=== PATIENT | female | born 1960 | race Caucasian/White ===

== ENCOUNTER → 2017-07-17 09:26 | Outpatient (CLI) | payer OTHER, SELFPAY ==
--- NOTE | 2017-07-17 09:45 | XR_ITS ---
XR DEXA axial skeleton HISTORY: ITS.REASON: OSTEOPENIA ORDERING PHYSICIAN: Carlos Alexander MD PATIENT AGE: 57 years COMPARISON: FINDINGS: The BMD measured at the left femoral neck is 1.084 g/cm squared with a T score of 0.3. This is considered normal according to the World Health Organization criteria. Fracture risk is low. L1 L4 density has a T score of 0.7 which is normal. IMPRESSION: Normal bone density. Recommend follow-up exam July 2019
== END ==
PROVIDERS: Family Provider Internal Medicine Adolescent Medicine; PCP Family Medicine; Visit Provider Family Medicine
DX: M85.89 Other specified disorders of bone density and structure, multiple sites (principal)
CPT/HCPCS: 77080

== ENCOUNTER → 2020-11-21 16:31 | Outpatient (CLI) | payer BC, SELFPAY ==
[2020-11-21 16:34] LABS: Microscopic, Urine URINE MICROSCOPIC (MICROSCOPIC)
[2020-11-21 17:34] LABS: Appearance,Urine SL CLOUDY (Clear); Bilirubin,Urine Negative (Negative); Blood, Urine 3+ (Negative); Color,Urine YELLOW (Yellow); Glucose,Urine (UA) Negative (Negative); Ketones,Urine Negative (Negative); Leukocyte Esterase,Urine Negative (Negative); Nitrate,Urine Negative (Negative); Protein,Urine TRACE (Negative); Specific Gravity, Urine >= 1.030 (1.005-1.030)
== END ==
PROVIDERS: Visit Provider Physician Assistant
DX: R30.0 Dysuria (principal)
CPT/HCPCS: 81001; 87086

== ENCOUNTER 2020-11-21 17:25 | Emergency (ER) | payer BC, SELFPAY ==
[2020-11-21 17:26] VITALS: BP 137/77; PULSE 77; RESP 19; TEMP 36.7; O2SAT 99; BMI 30.7
--- NOTE | 2020-11-21 17:30 | HMH.EDABDPAI ---
ED Disposition Clinical Impression: Ureterolithiasis Disposition: Home, Self-Care Condition on Discharge: Fair Instructions: DI for Kidney Stones Additional Instructions: Return to the emergency department if you feel worse in any way. You may take [id number] acetaminophen in combination with the prescription written for you today. Continue to drink plenty of fluids. Return to the emergency department if you feel feverish or have a documented fever. Follow-up with your primary care doctor in about 2 to 3 days if you do not feel better. Prescriptions: Ketorolac Tromethamine [Toradol 10mg tablet] 10 mg PO Q6HP PRN #8 tab MDD 40mg/day PRN Reason: Flank Pain Transmission Status: Received by [employer] #[id number] Referrals: Carlos Alexander MD [Primary Care Provider] - - Critical Care Critical Care Time: No Attestation: On , the high probability of a clinically significant, sudden or life threatening deterioration of the following system(s) required my full and direct attention, intervention and personal management. The time I documented below is in addition to time spent performing reported procedures but includes the following listed in this critical care notation. Medical Decision Making - Medical Records Medical records reviewed: Yes: I reviewed the patient's medical records. - Larry Inquiry Pt receiving controlled substance: No Vital Signs: 11/21/20 17:26 Temperature 98.1 F Temperature Source Oral Pulse Rate [Left Radial] 77 Respiratory Rate 19 Blood Pressure [Right Arm] 137/77 Blood Pressure Mean [Right Arm] 97 Blood Pressure Source [Right Arm] Automatic Cuff Blood Pressure Position [Right Arm] Sitting 02 Sat by Pulse Oximetry 99 Oxygen Delivery Method Room Air - Lab Data Lab results reviewed: Yes: I reviewed the patient's lab results. Lab Results 11/21/20 17:40: WBC 12.8 H, RBC 4.75, Hgb 12.0 L, Hct 38.2, MCV 80.3 L, MCH 25.3 L, MCHC 31.5 L, RDW 16.8, Plt Count 359, MPV 8.7, Neut % (Auto) 80.2 H, Lymph % (Auto) 12.5, Anderson % (Auto) 6.0, Eos % (Auto) 0.7, Baso % (Auto) 0.6, Neut # (Auto) 10.3 H, Lymph # (Auto) 1.6, Anderson # (Auto) 0.8, Eos # (Auto) 0.1, Baso # (Auto) 0.1 11/21/20 17:40: Sodium 140, Potassium 3.6, Chloride 103, Carbon Dioxide 23, Anion Gap 17.6 H, BUN 12, Creatinine 0.90, Estimated Creat Clear 90, Estimated GFR 64, Est GFR ( Amer) 77, Glucose 140 H, Calcium 9.6, Total Bilirubin 0.8, AST 27, ALT 24, Alkaline Phosphatase 115, Total Protein 8.4 H, Albumin 4.4, Globulin 4.0 H, Albumin/Globulin Ratio 1.1 Result diagrams: 11/21/20 17:40 11/21/20 17:40 Orders (Tests/Meds): ED MEDICATIONS Discontinued Medications Generic Name Dose Route Start Last Admin Trade Name Freq PRN Reason Stop Dose Admin Ketorolac Tromethamine 30 mg 11/21/20 17:35 11/21/20 17:53 Ketorolac 30mg/Ml Vial IV 11/21/20 17:36 30 mg ONCE ONE Administration - CT Data CT Scan: Abdomen, Pelvis Time Received: 18:[address] Reviewed: Yes: I have reviewed the patient's CT results, I have viewed the radiologist's interpretation Preliminary Findings: Abnormal (4 mm distal right ureteral stone causing hydronephrosis.) Medical Decision Narrative: The patient presents to the emergency department complaining of right flank pain. The patient's work-up confirmed that the patient has a distal right ureteral stone of 4 mm in diameter. The patient was given Toradol which improved the patient's pain. The patient was offered stronger pain medication but declined. I feel that the patient can be discharged in stable condition with instructions to follow-up with her primary care physician in about 2 to 3 days if symptoms do not improve. Urinalysis from earlier today was reviewed by me. She has +3 blood but no signs of infection. Abdominal Pain HPI - General Chief Complaint: Abdominal Pain Stated Complaint: poss kidney stone Time Seen by Provider: 11/21/20 17:30 Mode of Arrival: Ambulatory
--- NOTE | 2020-11-21 17:32 | CT_ITS ---
PROCEDURE INFORMATION: Exam: CT Abdomen And Pelvis Without Contrast Exam date and time: 11/21/2020 5:32 PM Age: 60 years old Clinical indication: Abdominal pain; Patient HX: Right flank pain, nausea, vomiting TECHNIQUE: Imaging protocol: Computed tomography of the abdomen and pelvis without contrast. Radiation optimization: All CT scans at this facility use at least one of these dose optimization techniques: automated exposure control; mA and/or kV adjustment per patient size (includes targeted exams where dose is matched to clinical indication); or iterative reconstruction. COMPARISON: No relevant prior studies available. FINDINGS: Mediastinal space: Small hiatal hernia. Liver: Mild diffuse hypoattenuation of liver parenchyma. Gallbladder and bile ducts: Normal. No calcified stones. No ductal dilation. Pancreas: Normal. No ductal dilation. Spleen: Normal. No splenomegaly. Adrenal glands: Normal. No mass. Kidneys and ureters: A punctate nonobstructing stone is seen in the left kidney upper pole. No left hydronephrosis. On the right, there is a 3 mm nonobstructing stone in the interpolar region. There is [id number] right hydronephrosis and hydroureter. This is due to a 4 mm distal right ureteral stone. Stomach and bowel: Unremarkable. No obstruction. No mucosal thickening. Appendix: No evidence of appendicitis. Intraperitoneal space: Unremarkable. No free air. No significant fluid collection. Vasculature: Unremarkable. No abdominal aortic aneurysm. Lymph nodes: Unremarkable. No enlarged lymph nodes. Urinary bladder: Unremarkable as visualized. Reproductive: A 47 mm mostly hypoattenuating well-circumscribed lesion is seen related to the left ovary. Bones/joints: Unremarkable. No acute fracture. Soft tissues: Unremarkable. IMPRESSION: 1. Dmod-bw-[id number] right hydronephrosis due to a 4 mm distal right ureteral stone. Additional low burden bilateral nephrolithiasis. 2. A 47 mm mostly hypoattenuating well-circumscribed lesion is seen related to the left ovary. Non urgent ultrasound is recommended for better characterization. 3. Mild hepatic steatosis.
[2020-11-21 17:51] LABS: Basophils # 0.1 K/mm3 (0-0.2); Basophils % 0.6 % (0.1-2.0); Eosinophils # 0.1 K/mm3 (0.0-0.4); Eosinophils % 0.7 % (0.1-12.0); Hematocrit 38.2 % (37.0-47.0); Lymphocytes # 1.6 K/mm3 (0.7-4.5); Lymphocytes % 12.5 % (10-50); Mean Corpuscular HGB Conc 31.5 g/dL (31.8-35.4); Mean Corpuscular Hemoglobin 25.3 pg (27.0-31.2); Mean Corpuscular Volume 80.3 fl (81-99); Mean Platelet Volume 8.7 fl (7.4-10.4); Monocytes # 0.8 K/mm3 (0.1-1.0); Neutrophils # 10.3 K/mm3 (1.8-7.8); Neutrophils % 80.2 % (37.0-80.0); Platelet Count 359 K/mm3 (142-424); Red Blood Count 4.75 M/mm3 (4.20-5.40); Red Cell Distribution Width 16.8 % (11.5-17.5); White Blood Count 12.8 K/mm3 (4.8-10.8)
[2020-11-21 17:58] LABS: Alanine Aminotransferase 24 U/L (12-78); Albumin Level 4.4 g/dl (3.5-5.0); Albumin/Globulin Ratio 1.1 (1.1-1.8); Alkaline Phosphatase 115 U/L (38-126); Anion Gap 17.6 mEq/L (5-15); Aspartate Amino Transferase 27 U/L (14-36); Bilirubin,Total 0.8 mg/dl (0.2-1.3); Blood Urea Nitrogen 12 mg/dl (7-17); Calcium 9.6 mg/dl (8.4-10.2); Carbon Dioxide 23 mmol/L (22.0-30.0); Chloride 103 mmol/L (98-107); Creatinine Clearance Estimated 90 mL/min (50-200); Estimated Glomerular Filt Rate 64 ml/min (>60); GFR (African American) 77 ML/MIN (>60); Glucose 140 mg/dl (74-100); Potassium 3.6 mmoL/L (3.5-5.1); Sodium 140 mmol/L (136-145); Total Protein,Serum 8.4 g/dl (6.3-8.2)
[2020-11-21 19:16] VITALS: BP 107/90; PULSE 76; RESP 16; TEMP 36.8; O2SAT 98
== END 2020-11-21 19:17 | disposition home or self-care (01) ==
PROVIDERS: Emergency Provider Emergency Medicine; PCP Family Medicine
DX: N13.2 Hydronephrosis with renal and ureteral calculous obstruction (principal)
CPT/HCPCS: 74176; 80053; 85025; 96374; 99282

== ENCOUNTER → 2021-01-14 16:43 | Outpatient (CLI) | payer BC, SELFPAY ==
[2021-01-14 17:40] LABS: Erythrocyte Sedimentation Rate 18 mm/hr (0-30)
[2021-01-14 17:56] LABS: Uric Acid 5.3 mg/dl (2.5-6.2)
== END ==
PROVIDERS: Visit Provider Family Medicine
DX: I73.00 Raynaud's syndrome without gangrene (principal)
CPT/HCPCS: 36415; 84550; 85651

== ENCOUNTER → 2021-01-15 12:37 | Outpatient (CLI) | payer BC, SELFPAY ==
--- NOTE | 2021-01-15 12:42 | CT_ITS ---
PROCEDURE: CT ABDOMEN PELVIS WO CON CLINICAL INDICATION: RLQ PAIN COMPARISON: CT CT ABDOMEN PELVIS WO CON from 11/21/2020 TECHNIQUE: Axial images obtained with sagittal and coronal reformats. All CT scans at the facility use one or more dose reduction, viz: automated exposure control, ma/kV adjustment per patient size (including targeted exams where dose is matched to indication, i.e. head), or iterative reconstruction technique. FINDINGS: LOWER THORAX: No acute finding ABDOMEN & PELVIS: The liver, spleen adrenal glands, and pancreas have an unremarkable unenhanced appearance. 3 mm stone is present in the upper pole of the left kidney. There are small left parapelvic renal cysts. No ureteral calculi evident. No evidence of appendicitis. No intestinal obstruction or free air. No evidence of diverticulitis. 4.5 x 3.7 cm left ovarian cyst not significantly changed. No pelvic fluid or adenopathy. No acute bony findings. IMPRESSION: No acute finding. Left nephrolithiasis Stable 4.5 by 3.7 cm left ovarian cyst. Please see ultrasound report of the same day for recommendations. Dictated by: Prakash Andrews MD 01/16/2021 07:46 Prakash Andrews MD in [facility] 01/16/2021 07:46
--- NOTE | 2021-01-15 12:43 | US_ITS ---
PROCEDURE: US TRANSVAGINAL CLINICAL INDICATION: LT OVARY CYST COMPARISON: CT CT ABDOMEN PELVIS WO CON from 11/21/[address] ABDOMEN PELVIS WO CON from 01/15/2021 FINDINGS: UTERUS: 5cm x 3cmx 3cm with a combined endometrial thickness of 3.3mm LEFT OVARY: [id number] with a volume of 48.7ml. There is a 5 x 4 x 4 cm simple left ovarian cyst. RIGHT OVARY: [id number] with a volume of 1.4ml. No cul-de-sac fluid IMPRESSION: 5 cm simple left ovarian cyst. Consider six-month follow-up to confirm stability. Dictated by: Prakash Andrews MD 01/15/2021 18:37 Prakash Andrews MD in [facility] 01/15/2021 18:37
== END ==
PROVIDERS: PCP Family Medicine; Visit Provider Family Medicine
DX: R10.32 Left lower quadrant pain (principal); N83.202 Unspecified ovarian cyst, left side
CPT/HCPCS: 74176; 76830

== ENCOUNTER 2023-07-06 20:30 | Emergency (ER) | payer SELFPAY ==
[2023-07-06 20:31] VITALS: BP 115/61; PULSE 79; RESP 22; TEMP 36.7; O2SAT 100; BMI 31.4
--- NOTE | 2023-07-06 20:55 | CT_ITS ---
PROCEDURE INFORMATION: Exam: CT Abdomen And Pelvis With Contrast Exam date and time: 07/06/2023 9:20 PM Age: 63 years old Clinical indication: Abdominal pain; Additional info: Lower abd pain TECHNIQUE: Imaging protocol: Computed tomography of the abdomen and pelvis with contrast. Radiation optimization: All CT scans at this facility use at least one of these dose optimization techniques: automated exposure control; mA and/or kV adjustment per patient size (includes targeted exams where dose is matched to clinical indication); or iterative reconstruction. Contrast material: ISOVUE; Contrast volume: 75 ml; Contrast route: IV; COMPARISON: 1. CT ABDOMEN PELVIS WO CON 01/15/2021 1:[address] ABDOMEN PELVIS WO CON 11/21/2020 5:42 PM 3. US TRANSVAGINAL 01/15/2021 1:03 PM FINDINGS: Liver: Normal. Gallbladder and bile ducts: No acute process. Pancreas: Normal. Spleen: Normal. Adrenal glands: The adrenal glands appear normal. Kidneys and ureters: Moderate left hydroureteronephrosis extending to a 5 mm proximal ureteral calculus (image 65 series 3). Associated left-sided obstructive uropathy. Punctate nonobstructing right midpole intrarenal calculus. Stomach and bowel: The stomach, small bowel, and colon are well-distended and show no evidence of wall thickening, masses, or obstruction. Appendix: No evidence of appendicitis. Intraperitoneal space: Unremarkable. Vasculature: The abdominal aorta and its major branches appear normal without evidence of aneurysm or stenosis. There are pelvic phleboliths. Lymph nodes: No lymphadenopathy. Urinary bladder: Unremarkable as visualized. Reproductive: 4.6 cm left adnexal cystic lesion is stable since at least 2020. Bones/joints: The visualized osseous structures of the abdomen and pelvis appear normal for patient age. Soft tissues: There is a small fat containing umbilical hernia. IMPRESSION: Moderate left hydroureteronephrosis extending to a 5 mm proximal ureteral calculus (image 65 series 3).
[2023-07-06] MEDS: ONDANSETRON 4MG/2ML VIAL 4 MG IV (21:00)
[2023-07-06] MEDS: MORPHINE 4MG/ML SYRINGE 4 MG IV (21:00)
[2023-07-06 21:01] VITALS: BP 109/72; PULSE 74; RESP 18; O2SAT 97
[2023-07-06] MEDS: LACTATED RINGERS 1000ML 1,000 ML 999 ML IV (21:01)
[2023-07-06 21:04] LABS: Basophils # 0.1 K/mm3 (0-0.2); Basophils % 0.8 % (0.1-2.0); Eosinophils # 0.1 K/mm3 (0.0-0.4); Eosinophils % 0.6 % (0.1-12.0); Hematocrit 44.9 % (37.0-47.0); Hemoglobin 14.6 g/dL (12.2-16.2); Lymphocytes # 2.1 K/mm3 (0.7-4.5); Lymphocytes % 13.8 % (10-50); Mean Corpuscular HGB Conc 32.4 g/dL (31.8-35.4); Mean Corpuscular Hemoglobin 30.1 pg (27.0-31.2); Mean Corpuscular Volume 92.7 fl (81-99); Mean Platelet Volume 9.6 fl (7.4-10.4); Monocytes # 0.9 K/mm3 (0.1-1.0); Monocytes % 6.1 % (1.7-9.3); Neutrophils # 11.9 K/mm3 (1.8-7.8); Neutrophils % 78.7 % (37.0-80.0); Platelet Count 258 K/mm3 (142-424); Red Blood Count 4.85 M/mm3 (4.20-5.40); Red Cell Distribution Width 14.3 % (11.5-17.5); White Blood Count 15.1 K/mm3 (4.8-10.8)
[2023-07-06 21:06] LABS: Chloride 111 mmol/L (98-107); MANUAL DIFFERENTIAL MANUAL DIFFERENTIAL (MANUAL DIFF); Potassium 3.8 mmoL/L (3.5-5.1); Sodium 140 mmol/L (136-145)
[2023-07-06 21:08] LABS: Alanine Aminotransferase 36 U/L (12-78); Alkaline Phosphatase 74 U/L (38-126); Aspartate Amino Transferase 34 U/L (14-36); Blood Urea Nitrogen 14 mg/dl (7-17); Creatinine Clearance Estimated 80 mL/min (50-200); Estimated Glomerular Filt Rate 63 ml/min (>60); GFR (African American) 77 ML/MIN (>60)
[2023-07-06 21:09] LABS: Albumin Level 4.3 g/dl (3.5-5.0); Albumin/Globulin Ratio 1.4 (1.1-1.8); Anion Gap 8.8 mEq/L (5-15); Calcium 9.7 mg/dl (8.4-10.2); Carbon Dioxide 24 mmol/L (22.0-30.0); Glucose 134 mg/dl (74-100); Total Protein,Serum 7.3 g/dl (6.3-8.2)
[2023-07-06] MEDS: IOPAMIDOL-370 (76%);100ML BOTTLE 75 ML IV (21:20)
[2023-07-06] MEDS: SODIUM CHLORIDE 0.9% 10ML SYR (RAD ONLY) 10 ML IV (21:20)
[2023-07-06 21:30] VITALS: BP 128/71; PULSE 88; RESP 18; O2SAT 97
[2023-07-06] MEDS: KETOROLAC 30MG/ML VIAL 15 MG IV (21:40)
--- NOTE | 2023-07-06 21:53 | ED_ITS ---
Discharge Plan Disposition Patient Disposition: Home, Self-Care Condition: Good Prescriptions Prescriptions: New ciprofloxacin HCl 500 mg tablet 500 mg PO BID Qty: 20 0RF ketorolac 10 mg tablet 10 mg PO Q8H PRN (Reason: pain) Qty: 20 0RF ondansetron 4 mg tablet,disintegrating 4 mg PO Q8H PRN (Reason: nausea and vomiting) 4 Days Qty: 12 0RF tamsulosin [Flomax] 0.4 mg capsule 0.4 mg PO HS Qty: 10 0RF ketorolac 10 mg tablet 10 mg PO Q8H PRN (Reason: pain) Qty: 20 0RF oxycodone 5 mg tablet 5 mg PO Q8H PRN (Reason: pain) Qty: 12 0RF Discontinued ketorolac 10 MG tablet 10 mg PO Q6HP MDD 40mg/day PRN (Reason: Flank Pain) Qty: 8 0RF Rx Instructions: Therapy initiated with IV/IM dose Referrals Follow up/Referrals: Carlos Alexander MD [Primary Care Provider] - See instructions Activity Restrictions/Add. Instructions Additional Instructions/Restrictions: You were evaluated in the emergency department today. You have a 5 mm stone on your left kidney. Your left ovarian cyst is stable. Your white blood cell count was mildly elevated today, which could be due to vomiting. Given that you have a kidney stone, it is very important that you monitor for fever greater than 100.4 ?F. Please return to the emergency department should you develop a fever, significant worsening pain, intractable nausea and vomiting despite taking medications, or other concerns. In addition to the medications prescribed to you, you may take Tylenol. Do not drive or operate heavy machinery while taking oxycodone, as it is a narcotic pain medication. Follow- up closely with your primary care provider as well as a urologist. Clinical Impressions Clinical Impression: Ureterolithiasis Stand Alone Forms Stand Alone Forms: Work/School Release Instructions Patient Instructions: DI for Kidney Stones, DI for Acute Abdominal Pain Discharge ED Provider: Danika Faust General Adult HPI General Chief complaint: Abdominal Pain Stated complaint: abd , back pain Time Seen by Provider: 07/06/23 20:43 Mode of Arrival: Ambulatory Source of Information: Patient Limitations: No Limitations Description of Symptoms (Recalled from ER Triage Doc. by RN): Patient reports that she's had a left ovarian cyst for over a year and this afternoon felt a pop and thought maybe that it had burst. She has been experiencing 8/10 suprapubic and flank pain. Patient took advil at home but vomited shortly after, so she's unsure that she actually kept the medication down. History of Present Illness HPI narrative: This patient is a 63-year-old female with a history of left ovarian cyst as well as kidney stones but no prior abdominal surgeries presenting to the emergency department with concern for right upper quadrant pain as well as severe left flank/suprapubic pain x 1 day. Patient reports that she has pain in the right upper quadrant when she takes a deep breath in, however the left-sided pain is more persistent and severe. She denies any fevers, chills, changes in bowel movements, or urinary symptoms, but she does note that she had profuse nausea and vomiting today. She took Advil at home but vomited shortly after so she is not sure that she keep it down. Related Data Previous Rx's Medication Instructions Recorded ciprofloxacin HCl 500 mg tablet 500 mg PO BID #20 tabs 07/06/23 ketorolac 10 mg tablet 10 mg PO Q8H PRN pain #20 tabs 07/06/23 ketorolac 10 mg tablet 10 mg PO Q8H PRN pain #20 tabs 07/06/23 ondansetron 4 mg disintegrating 4 mg PO Q8H PRN nausea and 07/06/23 tablet vomiting 4 days #12 tabs oxycodone 5 mg tablet 5 mg PO Q8H PRN pain #12 tabs 07/06/23 tamsulosin 0.4 mg capsule (Flomax) 0.4 mg PO HS #10 caps 07/06/23 Allergies Allergy/AdvReac Type Severity Reaction Status Date / Time tetracycline Allergy Verified 11/21/20 17:52 [facility] Disclaimer: The information contained in this section may have been updated after the patient was seen, as this information can be updated by other users. Social History Smoking Status: Never smoker alcohol intake: never current occupational status: employed Travel in the last 8 weeks: None ROS Obtained: Yes All systems reviewed & no additional complaints except as documented Physical Exam General General appearance: alert and in no apparent distress Comment: Uncomfortable appearing Head Head exam: atraumatic and normocephalic Eye Eye exam: Present normal appearance, PERRL and EOMI ENT ENT exam: Present normal exam, normal oropharynx, mucous membranes moist and normal external ear exam Neck Neck exam: Present normal inspection, full ROM and trachea midline; Absent tenderness Chest Chest inspection: Present normal inspection and symmetric chest wall rise; Absent tenderness Respiratory Respiratory exam: Present normal lung sounds bilaterally; Absent respiratory distress, wheezes, stridor or accessory muscle use Cardiovascular Cardiovascular exam: Present regular rate and normal rhythm Abdominal Exam Abdominal exam: Present soft and tenderness (Suprapubic); Absent distention, guarding, rebound or rigidity Extremities Exam Extremities exam: Present normal inspection, full ROM and normal capillary refill; Absent tenderness or edema Back Exam Back exam: Present full ROM and CVA tenderness (L) Neurological Exam Neurological exam: Present alert, oriented X3, CN II-XII intact and normal gait; Absent motor sensory deficit Psychiatric Psychiatric exam: Present normal affect and normal mood Skin Skin exam: Present warm and dry Medical Decision Making Medical Records Medical records reviewed: Yes I reviewed the patient's medical records. Larry Inquiry Pt receiving controlled substance: No Vital Signs: 07/06/23 20:31 07/06/23 21:01 07/06/23 21:30 Temperature 98.1 F Temperature Source Oral Pulse Rate 74 88 Pulse Rate [Left Radial] 79 Respiratory Rate 22 18 18 Blood Pressure 109/72 L 128/71 Blood Pressure [Right Arm] 115/61 Blood Pressure Mean 84 89 Blood Pressure Mean [Right Arm] 79 Blood Pressure Source [Right Arm] Automatic Cuff Blood Pressure Position [Right Arm] Sitting 02 Sat by Pulse Oximetry 100 97 97 Oxygen Delivery Method Room Air Room Air Room Air 07/06/23 22:00 Temperature Temperature Source Pulse Rate 83 Pulse Rate [Left Radial] Respiratory Rate 17 Blood Pressure 126/82 Blood Pressure [Right Arm] Blood Pressure Mean 85 Blood Pressure Mean [Right Arm] Blood Pressure Source [Right Arm] Blood Pressure Position [Right Arm] 02 Sat by Pulse Oximetry 96 Oxygen Delivery Method Room Air Lab Data Lab results reviewed: Yes I reviewed the patient's lab results. Lab Results 07/06/23 20:40: WBC 15.1 H, RBC 4.85, Hgb 14.6, Hct 44.9, MCV 92.7, MCH 30.1, MCHC 32.4, RDW 14.3, Plt Count 258, MPV 9.6, Neut % (Auto) 78.7, Lymph % (Auto) 13.8, [place] % (Auto) 6.1, Eos % (Auto) 0.6, Baso % (Auto) 0.8, Neut # (Auto) 11.9 H, Lymph # (Auto) 2.1, [place] # (Auto) 0.9, Eos # (Auto) 0.1, Baso # (Auto) 0.1, Total Counted 100, Neutrophils % (Manual) 78 H, Lymphocytes % (Manual) 19, Monocytes % (Manual) 2, Eosinophils % (Manual) 1, Platelet Estimate Normal, RBC Morphology Normal, Sodium 140, Potassium 3.8, Chloride 111 H, Carbon Dioxide 24, Anion Gap 8.8, BUN 14, Creatinine 0.90, Estimated Creat Clear 80, Estimated GFR 63, Est GFR ( Amer) 77, Glucose 134 H, Calcium 9.7, Total Bilirubin 1.0, AST 34, ALT 36, Alkaline Phosphatase 74, Total Protein 7.3, Albumin 4.3, Globulin 3.0, Albumin/Globulin Ratio 1.4 07/06/23 22:16: Urine Color Yellow, Urine Appearance Sl cloudy, Urine pH 7.0, Ur Specific [place] 1.010, Urine Protein Negative, Urine Glucose (UA) Negative, Urine Ketones Negative, Urine Blood 3+, Urine Nitrate Negative, Urine Bilirubin Negative, Urine Urobilinogen 0.2, Ur Leukocyte Esterase 1+ A, Urine RBC Occasional, Urine WBC 3-5, Ur Squamous Epith Cells Occasional, Urine Bacteria None 07/06/23 20:40 07/06/23 20:40 Orders (Tests/Meds): ED MEDICATIONS Discontinued Medications Generic Name Dose Route Start Last Admin Trade Name Rjq PRN Reason Stop Dose Admin Lactated Ringer's 1,000 mls @ 999 mls/hr 07/06/23 20:57 07/06/23 21:01 Lactated Ringer's 1000 Ml Bag IV 07/06/23 21:57 999 mls/hr .Q1H1M ONE Administration Iopamidol 75 ml 07/06/23 21:19 07/06/23 21:20 Iopamidol-370 (76%);100ml Bottle IV 07/06/23 21:20 75 ml ONCE ONE Administration Ketorolac Tromethamine 15 mg 07/06/23 21:24 07/06/23 21:40 Ketorolac 30mg/Ml Vial IV 07/06/23 21:25 15 mg ONCE ONE Administration Morphine Sulfate 4 mg 07/06/23 20:57 07/06/23 21:00 Morphine 4mg/Ml Syringe IV 07/06/23 20:58 4 mg ONCE ONE Administration Ondansetron HCl 4 mg 07/06/23 20:57 07/06/23 21:00 Ondansetron 4mg/2ml Vial IV 07/06/23 20:58 4 mg ONCE ONE Administration Sodium Chloride 10 ml 07/06/23 21:19 07/06/23 21:20 Sodium Chloride 0.9% 10ml Syr (Rad Only) IV 07/06/23 21:20 10 ml ONCE ONE Administration ORDERS Category Date Time Status CT abdomen pelvis w con Stat Cat Scan 07/06/23 20:55 Completed CMP [Comprehensive Metabolic Panel] Stat Lab 07/06/23 20:40 Completed Complete Blood Count Auto Diff Stat Lab 07/06/23 20:40 Completed UA [Urinalysis and Microscopic] Stat Lab 07/06/23 22:16 Completed Urine Culture Stat Micro 07/06/23 22:16 Received Medical Decision Narrative: In summary, this patient is a 63-year-old female presenting to the Emergency Department for evaluation of fever right upper quadrant pain as well as left- sided abdominal/lower pelvic pain. Differential diagnoses considered include but are not limited to cholecystitis, appendicitis, diverticulitis, colitis, ureterolithiasis. Ruling out the most morbid conditions drove assessment. On exam, the patient is very uncomfortable appearing. She has abdominal tenderness but no rebound or guarding. Workup included CBC, CMP, urinalysis, and CT abdomen pelvis with IV contrast. She was given a bolus of IV fluids as well as IV morphine, Zofran, and Toradol for symptomatic improvement. I independently interpreted CT scan prior to the radiologist read and noted that it ureterolithiasis. Please see their read for final interpretation. Patient's ovarian cyst is unchanged. Labs were obtained that demonstrated leukocytosis, which could be leukemoid reaction from vomiting versus infectious. Urinalysis is positive for blood as well as leukocyte esterase with only 3-5 whites, no bacteria, and negative nitrates.. On reassessment, patient had great improvement after administration of medications above. She remains afebrile with reassuring vital signs on cardiac telemetry. She states she is feeling very well and is ready to go home. I advised her that she does have a kidney stone that may or may not pass on its own given that it is 5 mm and causing obstructive hydronephrosis. Her kidney function is normal and urinalysis is not a slam dunk for infection, the urine culture is pending, so I do feel that discharge home could be appropriate. This complicated by the fact that the patient does not have insurance at this time. After shared decision-making, she would like to go home with antibiotics to have prophylactically in addition to out close outpatient follow-up with urology. Also provided prescriptions for oxycodone, Toradol, Zofran, and Flomax. Patient was given very strict return precautions should she develop fevers, worsening pain, or intractable nausea and vomiting. She expressed understanding agreement. She was discharged after all questions were answered. Critical Care Critical Care Time Critical Care Time: No
[2023-07-06 22:00] VITALS: BP 126/82; PULSE 83; RESP 17; O2SAT 96
[2023-07-06 22:20] LABS: Microscopic, Urine URINE MICROSCOPIC (MICROSCOPIC)
[2023-07-06 22:23] LABS: Appearance,Urine SL CLOUDY (Clear); Bilirubin,Urine Negative (Negative); Blood, Urine 3+ (Negative); Color,Urine YELLOW (Yellow); Glucose,Urine (UA) Negative (Negative); Ketones,Urine Negative (Negative); Leukocyte Esterase,Urine 1+ (Negative); Nitrate,Urine Negative (Negative); Protein,Urine Negative (Negative); Urobilinogen,Urine 0.2 EU/dl (0.2)
[2023-07-06 22:23] LABS: Eosinophils % 1 % (0-3); Lymphocytes % 19 % (10-50); Monocytes % 2 % (2-9); Neutrophils % 78 % (42-76); Total Cells Counted 100
[2023-07-06 22:24] LABS: Platelet Estimate Normal; RBC Morphology Normal
[2023-07-06 22:30] LABS: RBC,Urine Occasional #/hpf (0-3); Squamous Epithelial Cell,Urine Occasional #/hpf (0-5)
[2023-07-06 23:53] VITALS: BP 128/74; PULSE 89; RESP 18; TEMP 36.7; O2SAT 99
== END 2023-07-06 23:55 | disposition home or self-care (01) ==
PROVIDERS: Emergency Provider Emergency Medicine; PCP Family Medicine
DX: N13.0 Hydronephrosis with ureteropelvic junction obstruction (principal); B96.89 Other specified bacterial agents as the cause of diseases classified elsewhere; R10.11 Right upper quadrant pain; R10.32 Left lower quadrant pain; M54.59 Other low back pain; R11.2 Nausea with vomiting, unspecified; D72.829 Elevated white blood cell count, unspecified
CPT/HCPCS: 74177; 80053; 81001; 85007; 85025; 87086; 96361; 96374; 96375; 99285; J2405; Q9967

== ENCOUNTER 2023-07-30 06:23 | Outpatient (CLI) | payer OTHER, SELFPAY ==
--- NOTE | 2023-07-30 06:33 | CT_ITS ---
FINAL REPORT TECHNIQUE: Axial images through the abdomen and pelvis were performed without contrast. This study was performed with techniques to keep radiation doses as low as reasonably achievable, (ALARA). Individualized dose reduction techniques using automated exposure control or adjustment of mA and/or kV according to the patient's size were employed. CLINICAL HISTORY: RENAL STONE COMPARISON: 07/06/2023 FINDINGS: ABDOMEN: The lung bases are clear. The heart size is normal. A small hiatal hernia is present. There is mild fatty infiltration of the liver. The spleen is normal. No adrenal mass is identified. The aorta is normal in caliber. There is no significant free fluid or adenopathy. There are several, less than 3 mm, nonobstructing right renal stones. There is persistent mild left hydronephrosis and hydroureter secondary to a distal left ureteral stone seen in the mid pelvis. This has progressed distally somewhat compared to the prior exam. PELVIS: The appendix is normal. A left ovarian cystic mass measures 46 mm and has not significantly changed since the prior exam. This may represent a cyst versus a cystic neoplasm. The urinary bladder is unremarkable. There is no significant free fluid or adenopathy. IMPRESSION: Mild distal progression of a left ureteral stone with persistent mild left hydronephrosis and hydroureter. Nonobstructing right renal stones. Left ovarian cyst versus cystic neoplasm, not significantly changed. Reviewed, Interpreted and Dictated by Sim Longoria III, MD Transcribed by Gris Gonzalez Authenticated and . [facility]
== END 2023-07-30 23:59 | disposition home or self-care (01) ==
LOC: RAD 06:24
PROVIDERS: PCP Family Medicine; Visit Provider Family Medicine
DX: N20.0 Calculus of kidney (principal)
CPT/HCPCS: 74176

== ENCOUNTER 2023-08-07 21:43 | Emergency (ER) | payer OTHER, SELFPAY ==
[2023-08-07 23:17] VITALS: BMI 35.4
[2023-08-07 23:27] VITALS: BP 156/77; PULSE 84; RESP 18; TEMP 37.1; O2SAT 100; BMI 31.3
[2023-08-07 23:42] LABS: Basophils # 0.2 K/mm3 (0-0.2); Basophils % 1.6 % (0.1-2.0); Eosinophils # 0.2 K/mm3 (0.0-0.4); Eosinophils % 1.8 % (0.1-12.0); Hematocrit 45.1 % (37.0-47.0); Hemoglobin 14.1 g/dL (12.2-16.2); Lymphocytes # 2.3 K/mm3 (0.7-4.5); Lymphocytes % 23.1 % (10-50); Mean Corpuscular HGB Conc 31.2 g/dL (31.8-35.4); Mean Platelet Volume 8.4 fl (7.4-10.4); Monocytes # 0.7 K/mm3 (0.1-1.0); Monocytes % 7.3 % (1.7-9.3); Neutrophils # 6.6 K/mm3 (1.8-7.8); Neutrophils % 66.2 % (37.0-80.0); Platelet Count 229 K/mm3 (142-424); Red Blood Count 4.85 M/mm3 (4.20-5.40); Red Cell Distribution Width 14.1 % (11.5-17.5)
[2023-08-07 23:48] LABS: Chloride 106 mmol/L (98-107); Potassium 4.3 mmoL/L (3.5-5.1); Sodium 140 mmol/L (136-145)
[2023-08-07 23:50] LABS: Alanine Aminotransferase 46 U/L (12-78); Alkaline Phosphatase 80 U/L (38-126); Aspartate Amino Transferase 34 U/L (14-36); Blood Urea Nitrogen 14 mg/dl (7-17); Creatinine Clearance Estimated 82 mL/min (50-200); Estimated Glomerular Filt Rate 72 ml/min (>60); GFR (African American) 88 ML/MIN (>60)
[2023-08-07 23:51] LABS: Albumin Level 4.4 g/dl (3.5-5.0); Albumin/Globulin Ratio 1.4 (1.1-1.8); Anion Gap 12.3 mEq/L (5-15); Calcium 9.5 mg/dl (8.4-10.2); Carbon Dioxide 26 mmol/L (22.0-30.0); Globulin 3.2 g/dL (1.3-3.2); Glucose 103 mg/dl (74-100); Lipase 101 U/L (23-300); Total Protein,Serum 7.6 g/dl (6.3-8.2)
--- NOTE | 2023-08-08 00:24 | CT_ITS ---
PROCEDURE INFORMATION: Exam: CT Abdomen And Pelvis With Contrast Exam date and time: 08/08/2023 12:40 AM Age: 63 years old Clinical indication: Abdominal pain; Flank; Right; Additional info: R flank pain, L sided stone known TECHNIQUE: Imaging protocol: Computed tomography of the abdomen and pelvis with contrast. Radiation optimization: All CT scans at this facility use at least one of these dose optimization techniques: automated exposure control; mA and/or kV adjustment per patient size (includes targeted exams where dose is matched to clinical indication); or iterative reconstruction. Contrast material: ISOVUE; Contrast volume: 75 ml; Contrast route: IV; COMPARISON: CT ABDOMEN PELVIS WO CON 07/30/2023 6:32 AM FINDINGS: Lungs: No acute finding. Diaphragm: A small hiatal hernia is present. Liver: Mild hepatic steatosis is evident. Gallbladder and bile ducts: Normal. No calcified stones. No ductal dilation. Pancreas: Normal. No ductal dilation. Spleen: Normal. No splenomegaly. Adrenal glands: Normal. No mass. Kidneys and ureters: Tiny right intrarenal calculi noted on the prior study are not appreciated on this enhanced exam. No right hydronephrosis. The 3 x 5 mm left ureteral calculus has migrated to the level of the UVJ junction on today's study. There is minimal hydronephrosis present. There are likely parapelvic cysts present on the left as well. Stomach and bowel: Unremarkable. No obstruction. No mucosal thickening. Appendix: No evidence of appendicitis. Intraperitoneal space: Unremarkable. No free air. No significant fluid collection. Vasculature: Unremarkable. No abdominal aortic aneurysm. Lymph nodes: Unremarkable. No enlarged lymph nodes. Urinary bladder: Unremarkable as visualized. Reproductive: Persistent left ovarian cyst. Bones/joints: Unremarkable. No acute fracture. Soft tissues: Unremarkable. IMPRESSION: Left ureteral calculus is now at the level of the UVJ. There is residual very mild hydronephrosis present. There are suspected left renal parapelvic cysts as well. Previously noted right intrarenal calculi are not appreciated on this enhanced study. COMMENTS: Consistent with the [employer]'s Incidental Findings Committee white paper (J Am Pancho Radiol 2018): Any incidental renal lesion less than 1 cm or classified as too small to characterize, or any incidental cystic renal lesion characterized as simple-appearing, is likely benign. No follow-up imaging is recommended for these lesions per consensus recommendations based on imaging criteria.
--- NOTE | 2023-08-08 00:25 | HMH.EDGENADL ---
Discharge Plan Disposition Patient Disposition: Home, Self-Care Chief Complaint: Urogenital-Female Prescriptions Prescriptions: No Action ciprofloxacin HCl 500 mg tablet 500 mg PO BID Qty: 20 0RF ketorolac 10 mg tablet 10 mg PO Q8H PRN (Reason: pain) Qty: 20 0RF ondansetron 4 mg tablet,disintegrating 4 mg PO Q8H PRN (Reason: nausea and vomiting) 4 Days Qty: 12 0RF tamsulosin [Flomax] 0.4 mg capsule 0.4 mg PO HS Qty: 10 0RF ketorolac 10 mg tablet 10 mg PO Q8H PRN (Reason: pain) Qty: 20 0RF oxycodone 5 mg tablet 5 mg PO Q8H PRN (Reason: pain) Qty: 12 0RF Referrals Follow up/Referrals: Carlos Alexander MD [Primary Care Provider] - See instructions Clinical Impressions Clinical Impression: Ureterolithiasis, Acute right flank pain Instructions Patient Instructions: DI for Urinary Tract Infection (UTI), DI for Urinary Tract Infection in Children Discharge ED Provider: Toño Joya General Adult HPI General Chief complaint: Urogenital-Female Stated complaint: back pain burning/frequent urination chills Time Seen by Provider: 08/07/23 23:05 Mode of Arrival: Family Vehicle Source of Information: Patient Limitations: No Limitations Description of Symptoms (Recalled from ER Triage Doc. by RN): c/o urinary retention,burning and pain to right flank reports has 5mm kidney stone, saw dr ca for on 07/06/23. has an xray scheduled on Thursday and but felt increased pain since that plan was put into play. History of Present Illness HPI narrative: Patient is a 63-year-old female with past medical history of diagnosed ureterolithiasis undergoing expectant management with urology on the left who presents emergency department for evaluation of right flank pain. Onset was acute, over the last 24 to 48 hours, right flank pain. No vomiting, no bloody diarrhea, no jackie hematuria. It is described as a pressure . Due to persistent symptoms she presents here for continued evaluation. Related Data Previous Rx's Medication Instructions Recorded ciprofloxacin HCl 500 mg tablet 500 mg PO BID #20 tabs 07/06/23 ketorolac 10 mg tablet 10 mg PO Q8H PRN pain #20 tabs 07/06/23 ketorolac 10 mg tablet 10 mg PO Q8H PRN pain #20 tabs 07/06/23 ondansetron 4 mg disintegrating 4 mg PO Q8H PRN nausea and 07/06/23 tablet vomiting 4 days #12 tabs oxycodone 5 mg tablet 5 mg PO Q8H PRN pain #12 tabs 07/06/23 tamsulosin 0.4 mg capsule (Flomax) 0.4 mg PO HS #10 caps 07/06/23 Allergies Allergy/AdvReac Type Severity Reaction Status Date / Time tetracycline Allergy Verified 11/21/20 17:52 [facility] Disclaimer: The information contained in this section may have been updated after the patient was seen, as this information can be updated by other users. Social History (Updated 07/06/23 @ 23:50 by Danika Faust DO) Smoking Status: Unknown if ever smoked alcohol intake: never current occupational status: employed Travel in the last 8 weeks: None ROS Obtained: Yes Systems reviewed as appropriate & no additional complaints except as documented Physical Exam General General appearance: alert and in no apparent distress Head Head exam: atraumatic and normocephalic Eye Eye exam: Present PERRL and EOMI ENT ENT exam: Present mucous membranes moist Neck Neck exam: Present normal inspection Chest Chest inspection: Present normal inspection and symmetric chest wall rise Respiratory Respiratory exam: Present normal lung sounds bilaterally; Absent respiratory distress Cardiovascular Cardiovascular exam: Present regular rate and normal rhythm Abdominal Exam Abdominal exam: Present soft and tenderness (Mild, right lower quadrant) Extremities Exam Extremities exam: Present normal inspection Neurological Exam Neurological exam: Present alert Psychiatric Psychiatric exam: Present normal affect Skin Skin exam: Present warm and dry Medical Decision Making Larry Inquiry Pt receiving controlled substance: No Vital Signs: 08/07/23 23:27 Temperature 98.7 F Temperature Source Oral Pulse Rate [Right Brachial] 84 Respiratory Rate 18 Blood Pressure [Right Arm] 156/77 H Blood Pressure Mean [Right Arm] 103 Blood Pressure Source [Right Arm] Automatic Cuff Blood Pressure Position [Right Arm] Sitting 02 Sat by Pulse Oximetry 100 Oxygen Delivery Method Room Air Lab Data Lab Results 08/07/23 23:33: WBC 10.0, RBC 4.85, Hgb 14.1, Hct 45.1, MCV 93.0, MCH 29.0, MCHC 31.2 L, RDW 14.1, Plt Count 229, MPV 8.4, Neut % (Auto) 66.2, Lymph % (Auto) 23.1, [place] % (Auto) 7.3, Eos % (Auto) 1.8, Baso % (Auto) 1.6, Neut # (Auto) 6.6, Lymph # (Auto) 2.3, [place] # (Auto) 0.7, Eos # (Auto) 0.2, Baso # (Auto) 0.2, Sodium 140, Potassium 4.3, Chloride 106, Carbon Dioxide 26, Anion Gap 12.3, BUN 14, Creatinine 0.80, Estimated Creat Clear 82, Estimated GFR 72, Est GFR ( Amer) 88, Glucose 103 H, Calcium 9.5, Total Bilirubin 1.0, AST 34, ALT 46, Alkaline Phosphatase 80, Total Protein 7.6, Albumin 4.4, Globulin 3.2, Albumin/Globulin Ratio 1.4, Lipase 101 08/08/23 00:15: Urine Color Yellow, Urine Appearance Sl cloudy, Urine pH 6.0, Ur Specific [place] 1.010, Urine Protein Negative, Urine Glucose (UA) Negative, Urine Ketones Negative, Urine Blood 3+, Urine Nitrate Negative, Urine Bilirubin Negative, Urine Urobilinogen 0.2, Ur Leukocyte Esterase Trace, Urine RBC 20-50, Urine WBC None, Ur Squamous Epith Cells Occasional, Urine Bacteria None 08/08/23 01:33: Lactate 0.9 08/07/23 23:33 08/07/23 23:33 Orders (Tests/Meds): ED MEDICATIONS Generic Name Dose Route Start Last Admin Trade Name Freq PRN Reason Stop Dose Admin Sodium Chloride 10 ml 08/08/23 00:46 08/08/23 00:46 Sodium Chloride 0.9% 10ml Syr (Rad Only) IV 09/07/23 00:45 10 ml NEEDED PRN Administration Maintain IV Site Discontinued Medications Generic Name Dose Route Start Last Admin Trade Name Freq PRN Reason Stop Dose Admin Acetaminophen 1,000 mg 08/08/23 00:24 08/08/23 00:44 Acetaminophen 1,000mg/100ml Vial IV 08/08/23 00:25 1,000 mg ONCE ONE Administration Lactated Ringer's 500 mls @ 999 mls/hr 08/07/23 23:34 08/08/23 00:44 Lactated Ringer's 1000 Ml Bag IV 08/08/23 00:04 999 mls/hr .Q31M ONE Administration Iopamidol 75 ml 08/08/23 00:46 08/08/23 00:47 Iopamidol-370 (76%);100ml Bottle IV 08/08/23 00:47 75 ml ONCE ONE Administration Ketorolac Tromethamine 30 mg 08/08/23 00:24 08/08/23 00:45 Ketorolac 30mg/Ml Vial IV 08/08/23 00:25 30 mg ONCE ONE Administration Ondansetron HCl 4 mg 08/08/23 00:24 08/08/23 00:45 Ondansetron 4mg/2ml Vial IV 08/08/23 00:25 4 mg ONCE ONE Administration ORDERS Category Date Time Status CT abdomen pelvis w con Stat Cat Scan 08/08/23 00:24 Completed Complete Blood Count Auto Diff Stat Lab 08/07/23 23:33 Completed Comprehensive Metabolic Panel Stat Lab 08/07/23 23:33 Completed Lactic Acid Stat Lab 08/07/23 23:33 Completed Lipase Stat Lab 08/07/23 23:33 Completed Urinalysis and Microscopic Stat Lab 08/08/23 00:15 Completed Medical Decision Narrative: In summary patient is a 63-year-old female past medical history described above who presents emergency department for evaluation of right flank pain. Patient is hemodynamically stable nontoxic-appearing upon arrival, afebrile. Differential diagnosis includes right-sided ureterolithiasis, urinary tract infection, appendicitis, among others. Workup will be conducted with hematologic labs, urinalysis, CT abdomen pelvis IV contrast. Initial inventions include Toradol, Tylenol, crystalloid bolus, Zofran. Workup reviewed by me, hematologic labs are nonactionable, no TEENA or critical electrolyte abnormality, urinalysis consistent with hematuria, not consistent with infection. CT imaging informally visualized by me, it appears there is a stone at the left UVJ. Formal CT read shows left ureteral calculus now at the level of the UVJ with residual hydronephrosis, suspected left renal peripelvic cyst, previously noted right intrarenal calculi not appreciated. It is possible that patient has passed a very small stone that was in her right kidney however it is possible they are still there given that this is a contrast-enhanced study. Regardless upon repeat evaluation patient was hemodynamically stable, acceptable level of pain. Given this patient is appropriate for outpatient management at this time and will follow-up with her urologist on Thursday. Patient already has Flomax, appropriate pain control at home. Critical Care Critical Care Time Critical Care Time: No
--- NOTE | 2023-08-08 00:27 | PC.NURSE ---
pt sent back to bathroom for additional urine collection.
[2023-08-08] MEDS: LACTATED RINGERS 1000ML 500 ML 999 ML IV (00:44)
[2023-08-08] MEDS: ACETAMINOPHEN 1,000MG/100ML VIAL 1000 MG IV (00:44)
[2023-08-08] MEDS: ONDANSETRON 4MG/2ML VIAL 4 MG IV (00:45)
[2023-08-08] MEDS: KETOROLAC 30MG/ML VIAL 30 MG IV (00:45)
[2023-08-08] MEDS: SODIUM CHLORIDE 0.9% 10ML SYR (RAD ONLY) 10 ML IV (00:46)
[2023-08-08] MEDS: IOPAMIDOL-370 (76%);100ML BOTTLE 75 ML IV (00:47)
[2023-08-08 00:51] LABS: Microscopic, Urine URINE MICROSCOPIC (MICROSCOPIC)
[2023-08-08 00:55] LABS: Appearance,Urine SL CLOUDY (Clear); Bilirubin,Urine Negative (Negative); Blood, Urine 3+ (Negative); Color,Urine YELLOW (Yellow); Glucose,Urine (UA) Negative (Negative); Ketones,Urine Negative (Negative); Leukocyte Esterase,Urine TRACE (Negative); Nitrate,Urine Negative (Negative); Protein,Urine Negative (Negative); Urobilinogen,Urine 0.2 EU/dl (0.2)
[2023-08-08 01:08] LABS: RBC,Urine 20-50 #/hpf (0-3); Squamous Epithelial Cell,Urine Occasional #/hpf (0-5)
[2023-08-08 01:50] LABS: Lactic Acid 0.9 mmol/L (0.7-2.1)
[2023-08-08 02:13] VITALS: BP 136/95; PULSE 82; RESP 19; TEMP 36.8; O2SAT 98
== END 2023-08-08 02:15 | disposition home or self-care (01) ==
PROVIDERS: Emergency Provider Emergency Medicine; PCP Family Medicine
DX: N13.0 Hydronephrosis with ureteropelvic junction obstruction (principal); R10.31 Right lower quadrant pain; M54.59 Other low back pain
CPT/HCPCS: 74177; 80053; 81001; 83605; 83690; 85025; 96361; 96374; 96375; 99284; J0131; J2405; J7120; Q9967

== ENCOUNTER 2024-07-05 11:52 | Outpatient (CLI) | payer OTHER, SELFPAY ==
--- NOTE | 2024-07-05 | XR_ITS ---
FINAL REPORT CLINICAL HISTORY: ACUTE FOOT PAIN COMPARISON: None FINDINGS: RIGHT ANKLE 3 views of the right ankle were obtained. There is no acute fracture or dislocation. The mortise is intact. Visualized joint spaces are normally aligned. A small plantar calcaneal spur is present. Soft tissues are unremarkable. IMPRESSION: A small plantar calcaneal spur is present, with no acute bony abnormality. Reviewed, Interpreted and Dictated by Gm Parks MD Transcribed by Sandra Begum Authenticated and [facility]
--- NOTE | 2024-07-05 12:00 | XR_ITS ---
FINAL REPORT CLINICAL HISTORY: acute pain COMPARISON: None FINDINGS: LEFT ANKLE Three views demonstrate no acute fracture or dislocation. The visualized joint spaces are normally aligned. A small plantar calcaneal spur is present. The soft tissues are unremarkable. IMPRESSION: A small plantar calcaneal spur is present, with no acute bony abnormality. Reviewed, Interpreted and Dictated by Gm Parks MD Transcribed by Sandra Begum Authenticated and [facility]
--- NOTE | 2024-07-05 12:00 | XR_ITS ---
FINAL REPORT CLINICAL HISTORY: HAND APIN LEFT COMPARISON: None FINDINGS: LEFT HAND Three views demonstrate no acute fracture or dislocation. There are minimal hypertrophic changes of the distal interphalangeal joints. The visualized joint spaces are normally aligned. The soft tissues are unremarkable. IMPRESSION: Mild degenerative change as described, with no acute process. Reviewed, Interpreted and Dictated by Gm Parks MD Transcribed by Sandra Begum Authenticated and [facility]
--- NOTE | 2024-07-05 12:00 | XR_ITS ---
FINAL REPORT CLINICAL HISTORY: acute pain COMPARISON: None FINDINGS: LEFT FOOT Three views of the left foot demonstrate no acute fracture or dislocation. The visualized joint spaces are normally aligned. A small plantar calcaneal spur is noted. The soft tissues are unremarkable. IMPRESSION: Small plantar calcaneal spur, with no acute bony abnormality. Reviewed, Interpreted and Dictated by Gm Parks MD Transcribed by Sandra Begum Authenticated and . [facility]
--- NOTE | 2024-07-05 12:01 | XR_ITS ---
FINAL REPORT CLINICAL HISTORY: ACUTE PHILIPPE PAIN COMPARISON: None FINDINGS: RIGHT HAND Three views demonstrate no acute fracture or dislocation. There is minimal hypertrophic change of the DIP joints of the fingers, most severe involving the second DIP. The visualized joint spaces are normally aligned. The soft tissues are unremarkable. IMPRESSION: Mild degenerative change as described, with no acute bony abnormality. Reviewed, Interpreted and Dictated by Gm Parks MD Transcribed by Sandra Begum Authenticated and [facility]
--- NOTE | 2024-07-05 12:03 | XR_ITS ---
FINAL REPORT CLINICAL HISTORY: KNEE PAIN COMPARISON: None FINDINGS: LEFT KNEE 3 views of the left knee were obtained. There is no acute fracture or dislocation. There are mild hypertrophic changes of the medial margin of the knee. There are also small osteophytes on the undersurface of the patella. Visualized joint spaces are normally aligned. Soft tissues are unremarkable. IMPRESSION: Mild degenerative change, with no acute bony abnormality. Reviewed, Interpreted and Dictated by Gm Parks MD Transcribed by Sandra Begum Authenticated and [facility]
--- NOTE | 2024-07-05 12:03 | XR_ITS ---
FINAL REPORT CLINICAL HISTORY: ACUTE PAIN OF FOOT COMPARISON: None FINDINGS: RIGHT FOOT 3 views of the right foot were obtained. There is no acute fracture or dislocation. Visualized joint spaces are normally aligned. Soft tissues are unremarkable. A small plantar calcaneal spur is present. IMPRESSION: No acute bony abnormality. Reviewed, Interpreted and Dictated by Gm Parks MD Transcribed by Sandra Begum Authenticated and . [facility]
--- NOTE | 2024-07-05 12:03 | XR_ITS ---
FINAL REPORT TECHNIQUE: Right knee 3 views CLINICAL HISTORY: .pain COMPARISON: None FINDINGS: RIGHT KNEE: 3 images of the right knee were obtained. There is no evidence of fracture or dislocation. The joint spaces are intact. There is sharpening of the tibial spines. There is no soft tissue abnormality identified. IMPRESSION: No acute bony abnormality. Reviewed, Interpreted and Dictated by Gm Parks MD Transcribed by Sandra Begum Authenticated and [facility]
== END 2024-07-05 23:59 | disposition home or self-care (01) ==
LOC: RAD 11:54
PROVIDERS: PCP Family Medicine; Visit Provider Nurse Practitioner Family
DX: M79.671 Pain in right foot (principal); M79.672 Pain in left foot; M79.642 Pain in left hand; M79.641 Pain in right hand; M25.562 Pain in left knee
CPT/HCPCS: 73130; 73562; 73610; 73630